=== PATIENT | male | born 1980 | race Caucasian/White ===

== ENCOUNTER 2020-03-02 09:57 | Emergency (ER) | payer SELFPAY ==
[~2020-03-02] VITALS: Ht 175.3 cm; Wt 83.9 kg
[2020-03-02 09:57] VITALS: BP_SYST 135
[2020-03-02 10:40] VITALS: BP_SYST 135
== END 2020-03-02 10:40 ==
LOC: SED 09:57 → EEVIPCON 09:57 → SED 10:40
DX: R05 Cough (principal); Z03.818 Encounter for observation for suspected exposure to other biological agents ruled out
CPT/HCPCS: 99283; U0002